=== PATIENT | female | born 1990 | race Caucasian/White ===

== ENCOUNTER 2018-10-03 20:51 | Emergency (ER) | payer BC ==
--- NOTE | 2018-10-03 22:58 | ED ---
Head Injury - HPI Summary HPI Summary: Patient complains of fall while snowboarding with positive head injury. Patient was not wearing a helmet. Patient does not remember event, nor does she remember events prior to event for the past week. Friend who was with patient denies loss of consciousness, AMS. Friend states patient was initially out of it, but then returned to baseline. Patient herself denies headache, N/V , vision change, any pain, other injury or symptoms change from baseline, other than retrograde amnesia. Medical history is none. Denies EtOH or recreational drug use today. - History Of Current Complaint Chief Complaint: EDHeadInjury Stated Complaint: FALL/HEAD INJURY Time Seen by Provider: 10/03/18 21:48 Hx Obtained From: Patient, Family/Supervisor [employer] Mechanism Of Injury: Blunt Trauma, Fall From A Standing Position Onset/Duration: Started Hours Ago Severity Currently: None Pain Intensity: 0 Pain Scale Used: 0-10 Numeric Associated Signs And Symptoms: Memory Loss - Allergies/Home Medications Allergies/Adverse Reactions: Allergies Allergy/AdvReac Type Severity Reaction Status Date / Time No Known Allergies Allergy Verified 10/03/18 20:53 Home Medications: Home Medications NK [No Home Medications Reported] 10/03/18 [History Confirmed 10/03/18] PMH/Surg Hx/FS Hx/Imm Hx Endocrine/Hematology History: Denies: Hx Anticoagulant Therapy Cardiovascular History: Denies: Hx Cardiac Arrest History: Denies: Hx Dialysis Sensory History: Denies: Hx Eye Prosthesis Neurological History: Denies: Hx Developmental Delay Psychiatric History: Denies: Hx Autism Infectious Disease History: No Infectious Disease History: Denies: Traveled Outside the [place] in Last 30 Days - Family History Known Family History: Positive: Non-Contributory - Social History Alcohol Use: None Substance Use Type: Reports: None Smoking Status (MU): Never Smoked Tobacco Review of Systems Constitutional: Negative Eyes: Negative ENT: Negative Cardiovascular: Negative Respiratory: Negative Gastrointestinal: Negative Genitourinary: Negative Musculoskeletal: Negative Skin: Negative Neurological: Negative Psychological: Normal All Other Systems Reviewed And Are Negative: Yes Physical Exam - Summary Physical Exam Summary: No pain with palpation of head. No wound, ecchymosis, erythema, swelling, deformity noted to head, face, mouth. Patient moving all 4 extremities freely. No pain with pelvic patient of chest, abdomen, back, neck. Patient alert and oriented. Neuro exam normal. Triage Information Reviewed: Yes Vital Signs On Initial Exam: Initial Vitals Temp Pulse Resp BP Pulse Ox 99.8 F 88 18 126/90 100 10/03/18 20:54 10/03/18 20:54 10/03/18 20:54 10/03/18 20:54 10/03/18 20:54 Vital Signs Reviewed: Yes Appearance: Positive: Well-Appearing Skin: Positive: Warm Head/Face: Positive: Normal Head/Face Inspection Eyes: Positive: Normal ENT: Positive: Normal ENT inspection Dental: Negative: Dental Fracture @, Bleeding Neck: Positive: Supple Respiratory/Lung Sounds: Positive: Clear to Auscultation Cardiovascular: Positive: Normal Abdomen Description: Positive: Nontender Musculoskeletal: Positive: Normal Neurological: Positive: Normal Psychiatric: Positive: Normal AVPU Assessment: Alert - Suzy Coma Scale Best Eye Response: 4 - Spontaneous Best Motor Response: 6 - Obeys Commands Best Verbal Response: 5 - Oriented Coma Scale Total: 15 Diagnostics - Vital Signs Vital Signs Temp Pulse Resp BP Pulse Ox 10/03/18 20:54 99.8 F 88 18 126/90 100 - Laboratory Lab Statement: Any lab studies that have been ordered have been reviewed, and results considered in the medical decision making process. Head Injury Course/Dx Course Of Treatment: Patient complains of fall while snowboarding with positive head injury. Patient was not wearing a helmet. Patient does not remember event , nor does she remember events prior to event for the past week. Friend who was with patient denies loss of consciousness, AMS. Friend states patient was initially out of it, but then returned to baseline. Patient herself denies headache, N/V, vision change, any pain, other injury or symptoms change from baseline, other than retrograde amnesia. Medical history is none. Denies EtOH or recreational drug use today. No pain with palpation of head. No wound, ecchymosis, erythema, swelling, deformity noted to head, face, mouth. Patient moving all 4 extremities freely. No pain with pelvic patient of chest, abdomen , back, neck. Patient alert and oriented. Neuro exam normal. Within normal limits. Physical exam unremarkable. CT brain negative. Advised family and friend to observe patient for the next 12 hours and to return for any new or concerning symptoms. Avoid sports that might cause repeat head injury until cleared by primary care. - Diagnoses Provider Diagnoses: Head injury, Concussion Discharge - Sign-Out/Discharge Documenting (check all that apply): Patient Departure - Discharge Plan Condition: Stable Disposition: HOME Patient Education Materials: Concussion (ED), Head Injury (ED) Referrals: Saqib Moss MD [Primary Care Provider] - Additional Instructions: Symptoms should observe patient over the course of the next 12 hours for any change in mental status, headache, vision change, nausea or vomiting. Avoid activities that might cause repeat head injury until cleared by primary care. Ibuprofen or Tylenol for pain. - Billing Disposition and Condition Condition: STABLE Disposition: Home
[2018-10-03 23:03] VITALS: BP 113/67
== END 2018-10-03 23:03 | disposition home or self-care (01) ==
LOC: ED 20:51
DX: S06.0X0A Concussion without loss of consciousness, initial encounter (principal); W19.XXXA Unspecified fall, initial encounter; Y93.23 Activity, snow (alpine) (downhill) skiing, snowboarding, sledding, tobogganing and snow tubing; Y92.9 Unspecified place or not applicable
CPT/HCPCS: 70450; 99282